=== PATIENT | male | born 1975 | race African-American/Black ===

== ENCOUNTER 2017-11-16 17:58 | Emergency (ER) | payer OTHER ==
[~2017-11-16] VITALS: Ht 165.1 cm; Wt 136.1 kg
[~2017-11-16 17:58] MED LIST: AMOXICILLIN 50500 MG PO; NOHOMEMEDICATIONS; NORCO 5-325 TA1 EACH PO; PERCOCET 5-3251 EACH PO; ZPAK PO
[2017-11-16] MEDS ORDERED: PERCOCET 5-3251 EACH PO (20:35)
== END 2017-11-16 20:58 | disposition home or self-care (01) ==
LOC: ER 17:58
DX: S82.891A Other fracture of right lower leg, initial encounter for closed fracture (principal); F17.210 Nicotine dependence, cigarettes, uncomplicated; Z87.442 Personal history of urinary calculi; Z88.8 Allergy status to other drugs, medicaments and biological substances; W00.0XXA Fall on same level due to ice and snow, initial encounter; Y93.89 Activity, other specified; Y92.89 Other specified places as the place of occurrence of the external cause; Y99.8 Other external cause status